=== PATIENT | male | born 1950 | race Caucasian/White ===

== ENCOUNTER 2018-04-03 07:14 | Day surgery (SDC) | payer MEDICARE, BC ==
[2018-04-03] VITALS (28 sets, daily range): BP systolic 110–154; BP diastolic 73–104
[~2018-04-03] VITALS: Ht 170.2 cm; Wt 82.1 kg
[2018-04-03] MEDS ORDERED: BUDE10.2 INH (07:42)
[2018-04-03] MEDS ORDERED: CARV-50 PO (07:42)
[2018-04-03] MEDS ORDERED: RIVA20TA PO (07:42)
[2018-04-03] MEDS ORDERED: HYDR12.5 PO (07:42)
[2018-04-03] MEDS ORDERED: MIDAZolam 5mg/ml 2ml vial IV ONE (07:45)
[2018-04-03] MEDS ORDERED: fentaNYL/PF 50MCG/1 ML 2ML syringe IV ONE (07:45)
[2018-04-03] MEDS ORDERED: normal saline 1000ml 1,000 ML IV SCH (07:45)
[2018-04-03 08:41] LABS: BASOPHILS % (AUTO) 0.4 % (0-1); EOSINOPHILS # (AUTO) 0.1 X10'3 (0-0.9); EOSINOPHILS % (AUTO) 2.2 % (0-6); HEMOGLOBIN 15.7 g/dl (14.0-17.9); LYMPHOCYTES # (AUTO) 1.8 X10'3 (1.1-4.8); LYMPHOCYTES % (AUTO) 27.5 % (21-51); MEAN CORPUSCULAR HGB CONC 33.5 % (33.0-36.5); MEAN CORPUSCULAR VOLUME 92.6 FL (78-98); MEAN PLATELET VOLUME 8.1 FL (7.4-10.4); MONOCYTES # (AUTO) 0.7 X10'3 (0-0.9); MONOCYTES % (AUTO) 10.7 % (2-12); NEUTROPHILS # (AUTO) 3.9 X10'3 (1.8-7.7); NEUTROPHILS % (AUTO) 59.2 % (42-75); PLATELET COUNT 277 X10'3 (140-440); RED BLOOD COUNT 5.07 X10'6 (4.70-6.10); RED CELL DISTRIBUTION WIDTH 11.9 % (11.5-14.5); WHITE BLOOD COUNT 6.5 X10'3 (4.5-11.0)
[2018-04-03 09:10] LABS: ALBUMIN 3.9 G/DL (3.4-5.0); ANION GAP 11 (8-16); BLOOD UREA NITROGEN 14 MG/DL (7-18); BUN/CREATININE RATIO 15.9 (5.4-32.0); CALCIUM 8.8 MG/DL (8.5-10.1); CHLORIDE 98 MMOL/L (99-107); CREATININE 0.88 MG/DL (0.60-1.10); GLUCOSE 106 MG/DL (70-104); MAGNESIUM 2.2 MG/DL (1.5-2.4); POTASSIUM 3.8 MMOL/L (3.5-5.1); SODIUM 136 MMOL/L (135-145); eGFR 86 ML/MIN
[2018-04-03 09:21] LABS: INR 1.2 INR; PROTHROMBIN TIME 11.9 SECONDS (9.0-12.0)
[2018-04-03] MEDS ORDERED: flecainide 50mg tablet PO ONE (09:30)
[2018-04-03] MEDS ORDERED: AZIL80TA PO (09:38)
[2018-04-03] MEDS ORDERED: diphenhydrAMINE 25mg capsule PO ONE (10:30)
[2018-04-03] MEDS ORDERED: iohexol 350MG/ML 100ml bottle IV ONE (10:57)
[2018-04-03] MEDS ORDERED: iohexol 350 MG/ML 50ML vial IV ONE (10:57)
[2018-04-03] MEDS ORDERED: LIDOcaine 1% (10mg/ml)w/preservative injection 20ml MDV ONE (10:57)
[2018-04-03] MEDS ORDERED: midazolam 2 mg/2 ml injection ONE (12:48)
[2018-04-03] MEDS ORDERED: fentaNYL/PF 50MCG/1 ML 2ML syringe ONE (12:49)
== END 2018-04-03 14:45 | disposition home or self-care (01) ==
LOC: SSTAY O 07:14
PROVIDERS: ATTEND Internal Medicine Cardiovascular Disease
DX: I25.10 Atherosclerotic heart disease of native coronary artery without angina pectoris (principal); I48.3 Typical atrial flutter; I49.8 Other specified cardiac arrhythmias; I45.19 Other right bundle-branch block; I48.91 Unspecified atrial fibrillation; I10 Essential (primary) hypertension; J45.998 Other asthma; M19.90 Unspecified osteoarthritis, unspecified site; Z96.653 Presence of artificial knee joint, bilateral; Z87.891 Personal history of nicotine dependence; Z86.19 Personal history of other infectious and parasitic diseases; Z90.49 Acquired absence of other specified parts of digestive tract; Z72.89 Other problems related to lifestyle; Z79.899 Other long term (current) drug therapy; Z98.890 Other specified postprocedural states; Z80.1 Family history of malignant neoplasm of trachea, bronchus and lung
CPT/HCPCS: 36415; 80048; 83735; 85025; 85610; 92960; 93005; 93458; 99152; A6257; C1760; J1644; J2001; J2250; J3010; J7030; Q0163; Q9967; A4620; C1769; C1894

== ENCOUNTER 2024-10-31 06:38 | Day surgery (SDC) | payer MEDICARE, BC ==
--- NOTE | 2024-10-24 14:33 | ELECTROCARDIOGRAPH REPORT ---
[facility] Test Date: 2024-10-24 Test Time: 14:28:05 Pat Name: KATIE PRO Department: PSYCHIATRIC-PRE-OP Room: Gender: M Public Transportation Inspector: ARABELLA : 1950 Requested By: JACQUI OSORIO Order Number: [id number] Reading MD: Dr. KENTON Parnell Measurements Intervals [place] Rate: 65 P: 81 [place]: 193 QRS: 91 QRSD: 167 T: 47 QT: 444 QTc: 462 Interpretive Statements Sinus rhythm RBBB and LPFB Electronically Signed On 10-24-2024 19:17:[address] KENTON Parnell Please click the below link to view image of tracing.
[2024-10-24 14:45] LABS: MEAN PLATELET VOLUME 6.7 FL (7.4-10.4); PRE OP HEMATOCRIT 37.4 % (42.0-52.0); PRE OP HEMOGLOBIN 13.3 g/dL (14.0-17.9); PRE OP PLATELET COUNT 269 X10'3 (140-440); PRE OP WHITE BLOOD COUNT 7.1 10'3 (4.8-10.8); RED CELL DISTRIBUTION WIDTH 12.5 % (11.5-14.5)
[2024-10-24 15:01] LABS: CREATININE 0.85 MG/DL (0.60-1.10); PRE OP ALT 30 U/L (30-65); PRE OP ANION GAP 7 (8-16); PRE OP AST 23 U/L (10-37); PRE OP BILIRUB, TOTAL 0.7 MG/DL (0.0-1.0); PRE OP GLUCOSE 128 MG/DL (70-104); PRE OP POTASSIUM 4.5 MMOL/L (3.4-5.1); TOTAL CARBON DIOXIDE 28.1 MMOL/L (24-32); eGFR 88 ML/MIN
[2024-10-24 15:07] LABS: PRE OP SODIUM 130 MMOL/L (135-145)
[2024-10-31] VITALS (27 sets, daily range): BP systolic 103–148; BP diastolic 44–83; PULSE 54–75; RESP 10–16; TEMP 97.5–98.1; O2SAT 94–100
[~2024-10-31] VITALS: Ht 170.2 cm; Wt 76.8 kg
[2024-10-31] MEDS: DOCUMENT DATE & TIME OF BETA-BLOCKER PO ONE (05:30)
[2024-10-31] MEDS: ceFAZolin 2gm/dext,iso 50mL 50 ML IV ONE (05:30)
[~2024-10-31 06:38] MED LIST: AMLO2.5T5 PO; ASPI81TA52 PO; DONE-46 PO; FLUT16SP2 BOTHNARES; LOSA50TA64 PO; METO-384 PO; PANT40TA54 PO; SPIR25TA5 PO
[2024-10-31] MEDS ORDERED: INDOCYANINE GREEN 25 MG/10 ML VIAL IV ONE (06:45)
[2024-10-31] MEDS ORDERED: BUPIVAcaine 0.25% w/Epi /PF 30ml vial ONE (06:45)
[2024-10-31] MEDS ORDERED: BUPIVACAINE liposomal/PF 13.3 MG/ML 10mL vial IM ONE (06:46)
[2024-10-31] MEDS: ringers solution, lacted 1,000 ML IV SCH ×2 (07:10→14:02)
[2024-10-31 07:30] LABS: ISTAT ANION GAP 12 (8-12); ISTAT BUN 12 mg/dL (7-18); ISTAT CL 96 mmol/L (99-107); ISTAT CREATININE 0.7 mg/dL (0.8-1.3); ISTAT GLUCOSE 94 mg/dL (70-104); ISTAT HGB 13.6 g/dl (14.0-17.9); ISTAT Hct 40 %PCV (42-52); ISTAT IONIZED CALCIUM 1.20 mmol/L (1.03-1.32); ISTAT K 4.4 mmol/L (3.5-5.1); ISTAT NA 132 mmol/L (135-145); ISTAT TOTAL CO2 24 mmol/L (24-32); ISTAT eGFR > 90 ML/MIN; POC BUN/CREATININE RATIO 17.1 (5.4-32.0)
[2024-10-31] MEDS ORDERED: propofol inj 20 ML IV ONE (08:02)
[2024-10-31] MEDS ORDERED: fentaNYL /PF 50mcg/ml 5ml ampule ONE (08:02)
[2024-10-31] MEDS ORDERED: midazolam 1 mg/ML 2ml injection ONE (08:02)
[2024-10-31] MEDS ORDERED: labetalol 20mg/4ml (5mg/ml) syringe IV PRN (08:55)
[2024-10-31] MEDS ORDERED: hydrALAZINE 20mg/ml inj. IV PRN (08:55)
[2024-10-31] MEDS ORDERED: morphine 4 MG/ML inj SYRINge IV PRN (08:55)
[2024-10-31] MEDS ORDERED: ondansetron/PF 4mg/2ml inj IV PRN ×2 (08:55→11:00)
[2024-10-31] MEDS ORDERED: acetaminophen 1,000mg/100ml IV 100 ML IV PRN (08:55)
[2024-10-31] MEDS ORDERED: HYDROmorphone/PF 0.2 MG/ML SYRINGE IV PRN ×2 (08:55)
[2024-10-31] MEDS: BUPIVAcaine 0.25% w/Epi /PF 30ml vial IJ ONE (08:56)
[2024-10-31] MEDS ORDERED: dexamethasone sod phosphate 4mg/ml inj. ONE (10:15)
[2024-10-31] MEDS ORDERED: ePHEDrine 50MG/ML INJ. ONE (10:15)
[2024-10-31] MEDS ORDERED: rocuronium 10mg/ml inj IV ONE ×2 (10:15)
[2024-10-31] MEDS ORDERED: ondansetron/PF 4mg/2ml inj ONE (10:16)
[2024-10-31] MEDS ORDERED: glycopyrrolate 0.2mg/ml inj ONE (10:29)
[2024-10-31] MEDS ORDERED: magnesium hydroxide 30ml (MOM) UD suspension PO PRN (11:00)
[2024-10-31] MEDS ORDERED: fluticasone nasal spray 16GM bottle NS PRN (11:00)
[2024-10-31] MEDS ORDERED: HYDROcodone/acetaminophen 5mg/325mg tablet PO PRN (11:00)
[2024-10-31] MEDS ORDERED: mag hydrox/Alum hydrox/simeth 30ml oral suspension PO PRN (11:00)
--- NOTE | 2024-10-31 11:16 | OPERATIVE REPORT ---
Operative Report Providers to ~ Date of Procedure: Oct 31, 2024 Pre-Operative Diagnosis: Prostate cancer Post-Operative Diagnosis SAME as PRE-Op Procedure Performed Robotic assisted radical prostatectomy Surgeon: MD Vincent Paramedic Instructor MD Gely Anesthesiologist: River Luna Type of Anesthesia: General Findings: Prostate removed SpaceOAR seen in the posterior plane Complications None Prosthetics\Implants used: None Estimated Blood Loss: Less than 50 cc Specimen Removed: Prostate Description of Procedure: Patient was brought to the operating room, given a general anesthetic, and placed in the supine position. He was prepped and draped in the normal sterile fashion. A timeout was performed. A felipe catheter was placed. An incision was made above the umbilicus. Verass needle was used the insuflate the abdomen. Then an 8 angolan robotic port was placed. We then placed 3 more robotic ports lateral to the median port. On the right a 12 angolan assistant at surgery port was placed under direct visualization. The patient was put into steep trendelenburg and the robot was docked. With the robot docked I used sharp dissection to drop the sigmoid colon. Once the sigmoid colon was dropped I made an incision in the peritoneum posteriorly and dissected to the seminal vesicles and vas deferns bilaterally. Once I was there I was able to dissect the posterior plan. Vas deferns were dissected bilaterally. I next turned my attention to the bladder. I dropped the bladder and approached the prostate from above opening the endopelvic fascia bilaterally with sharp dissection. Once this was completed and all pelvic floor muscles were brushed off the prostate I next turned to taking the bladder neck. Electrocautery was used to dissect the bladder neck until the catheter was reached, at which point the catheter was pulled up and the posterior bladder neck was dissected. Seminal vesicles and vas deferns bilaterally were both pulled up at this point. I next continued fully dissecting the posterior. The pedicles were taken at this point and the nerves were spared. I then used sharp dissection to take the dorsal venous complex, using a 3-0 v-lock suture to close the sinuses. The rest of the urethra was then taken with sharp dissection. The prostate was now free and moved out of the way, and double armed 3-0 v-loc suture was used to approximate the bladder neck to the urethra. I did this circumstantially until it was complete. This was tested with a new felipe catheter and was water tight. The prostate was placed in a specimen bag and the robot was undocked. The incision over the umbilicus was increased to allow the prostate to be removed, at which point it was removed. 2-0 vicryl suture was used to close the fascia, local anesthetic was injected into each wound, and 4-0 monocryl suture was used to close the skin with dermabond glue on the skin level. Counts repoted as correct: Yes JACQUI OSORIO MD Oct 31, 2024 11:16
[2024-10-31] MEDS: docusate sod 100mg capsule PO SCH (20:12)
[2024-10-31] MEDS: heparin, porcine 5000 units/ml vial SQ SCH (20:13)
[2024-10-31] MEDS: donepezil 5mg tablet PO SCH (20:13)
[2024-10-31] MEDS: HYDROmorphone inj. 0.5 MG/0.5 ML DISP.SYRIN IV PRN (21:24)
[2024-11-01 04:57] LABS: MEAN PLATELET VOLUME 7.1 FL (7.4-10.4); RED CELL DISTRIBUTION WIDTH 12.7 % (11.5-14.5)
[2024-11-01 05:09] LABS: CREATININE 0.82 MG/DL (0.60-1.10); TOTAL CARBON DIOXIDE 28.4 MMOL/L (24-32); eCRCL 74 ML/MIN; eGFR > 90 ML/MIN
[2024-11-01 06:30] VITALS: BP 136/58; PULSE 85; RESP 18; TEMP 98.6; O2SAT 95
--- NOTE | 2024-11-01 07:59 | DISCHARGE SUMMARY ---
Discharge Summary Providers to CC ~ Discharge Summary Assessment Prostate cancer now s/p treatment. Admission Diagnosis: Prostate cancer Hospital Course DATE OF ADMISSION: 10/31/24 DATE OF DISCHARGE: 11/01/24 Discharge Diagnosis\Comment: Prostate cancer Operations\Procedures: 10/31/24: Robotic assisted laparoscopic radical prostatectomy Consultants: None Complications: None Condition on DC: Stable Discharge Summary: Patient is doing very well after surgery. Recovering as expected. Mccarthy catheter in place draining clear urine. Tolerating a diet. General: Awake and Alert, no acute distress. HEENT: Conjunctiva pink, Sclera clear, Mucus Membranes moist. Neck: Supple without masses and tenderness. Resp: Unlabored. Heart: Regular Rate and rhythm Abdomen: Soft and non tender no organomegaly, incisions clean, dry, and intact Extremities: No cyanosis,clubbing or edema. Skin: Warm and Dry. *Problems/Diagnosis: (1) Prostate CA Status: Chronic Assessment & Plan: Doing well after surgery. Patient is ready for discharge home with catheter in place. Total Time Spent on D/C: Up to 30 Minutes JACQUI OSORIO MD Nov 01, 2024 07:59
[2024-11-01] MEDS: metoprolol succinate 25mg (24-HOUR) SR. Tablet PO SCH (08:07)
[2024-11-01 10:00] VITALS: BP 111/64; PULSE 70; RESP 18; TEMP 98; O2SAT 100
[2024-11-01 10:09] VITALS: BP_SYST 136; PULSE 85
--- NOTE | 2024-11-06 19:10 | PATHOLOGY REPORT ---
[facility] [address] [place] [address] SURGICAL PATHOLOGY REPORT CaseNumber: [id number] Surgeon:Hank Kaur M.D. CLINICAL INFORMATION CLINICAL INFORMATION: Prostate cancer. The patient was treated for six months with hormone therapy, e nding on May 02, 2024. DIAGNOSIS DIAGNOSIS: PROSTATE; ROBOTIC-ASSISTED LAPAROSCOPIC PROSTATE - ACINAR ADENOCARCINOMA OF THE PROSTATE, CONVENTIONAL TYPE (JESSIKA SCORE 4+ 3 = 7, GRADE GROUP 3), 8% OF PARENCHYMA. - INTRADUCTAL CARCINOMA PRESENT. - PERINEURAL INVASION PRESENT. - SEMINAL VESSELS UNINVOLVED. - ALL SURGICAL MARGINS NEGATIVE FOR INVASIVE CARCINOMA MICROSCOPIC DESCRIPTION MICROSCOPIC DESCRIPTION: Twenty six H&E slides are reviewed. Sections from the prostate show multiple discontinuous foci of acinar adenocarcinoma, conventional (usual) type, characterized by small, umkumiut ded glands infiltrating the prostatic parenchyma. Present is superimposed therapy effect. The carcinoma is assigned a Jessika score of 4 + 3 = 7 (Grade Group 3), with no higher-grade pattern s identified. Therapy effect present hinders grading. Estimated Jessika grade 4 (60%), Jessika grade 3 (40%). No extraprostatic extension, seminal vesicle invasion, or involvement of the urinary bladder neck is present. Perineural invasion is present. Foci of intraductal carcinoma are present, showing markedly enlarged glands with preserved basal hillary l layers, luminal cribriform growth, and nuclear atypia. These are not incorporated into the Jessika grade. The presence of intraductal carcinoma was verified utilizing Ipox stain PIN 4. The controls ar e appropriately positive and negative. The fingerprint was of an insitu carcinoma. The tumor involves approximately 8-10% of the prostatic tissue examined. All surgical margins are fr ee of invasive carcinoma. The surrounding benign prostatic tissue shows areas of chronic inflammation , with scattered lymphocytic infiltrates. No lymph nodes were submitted for examination. GROSS DESCRIPTION GROSS DESCRIPTION: Received in a container of formalin labeled with the patient's name, number, and " prostate" is a 69 gram prostatectomy specimen with attached seminal vesicles and vasa deferentia whic h measures 6.5 x 5.5 x 4 cm. The right half of the prostate is inked blue, the left half is inked saman ck, and the specimen is sectioned to reveal diffuse nodularity. A1) Apical prostatic urethra marginA2) Base prostatic urethra marginA3-A7) Right anterior prostate submitted apex to baseA8-A12) Left anterior prostate submitted apex to b [id number]) Right posterior prostate submitted apex to [id number]) Left posterior prostate submitt ed apex to baseA23) Right prostate/seminal [id number]) Left prostate/seminal vesicl eA25) Right vas [id number]) Left vas deferens The time at which the specimen was removed was 1024. The time at which the specimen was placed in fo rmalin was 1032. (meb) SYNOPTIC REPORT SYNOPTIC TEXT: Prostate - Radical Prostatectomy Specimen Procedure: Radical prostatectomy Prostate Size Prostate Weight (Grams): 69 g Prostate Size in Centimeters (cm): 6.5 x 5.5 x 4 Centimeters (cm) Tumor Histologic Type: Acinar adenocarcinoma, conventional (usual) Histologic Type Comment: Acinar type demonstrating therapy effect. Precise grading hindered. Histologic Grade Grade: Grade group 3 (Lynn Score 4 + 3 = 7) Percentage of Pattern 4: Less than 61% Intraductal Carcinoma (IDC): Present IDC Incorporated into Grade: No Cribriform Glands: Not identified Treatment Effect: Hormonal therapy effect present Tumor Quantitation Estimated Percentage of Prostate Involved by Tumor: 6 - 10% Location of Dominant Nodule: Right anterior Extraprostatic Extension (EPE): Not identified Urinary Bladder Neck Invasion: Not identified Seminal Vesicle Invasion: Not identified Lymphatic and / or Vascular Invasion: Not identified Perineural Invasion: Present Margins Margin Status: All margins negative for invasive carcinoma Regional Lymph Nodes Regional Lymph Node Status: Not applicable (no regional lymph nodes submitted or found) pTNM Classification (AJCC 8th Edition) Modified Classification: y pT Category: pT2 pN Category: pN not assigned (no nodes submitted or found) Special Studies Ancillary Studies: Not performed Best Tumor Blocks for Future Studies Tumor Block(s): A3, A10, A20 Normal Block(s): A11-16 Electronically signed by: Nhan Richards M.D. 11/06/2024 6:32:00 PM
== END 2024-11-01 10:19 | disposition home or self-care (01) ==
LOC: PAS 06:38 → SUR 3N 13:52 → PAS 11-01 10:19
PROVIDERS: ATTEND Urology
DX: C61 Malignant neoplasm of prostate (principal); I45.2 Bifascicular block; I10 Essential (primary) hypertension; I48.91 Unspecified atrial fibrillation; K21.9 Gastro-esophageal reflux disease without esophagitis; G47.30 Sleep apnea, unspecified; I25.2 Old myocardial infarction; M19.90 Unspecified osteoarthritis, unspecified site; Z87.891 Personal history of nicotine dependence; Z79.1 Long term (current) use of non-steroidal anti-inflammatories (NSAID); Z79.82 Long term (current) use of aspirin; Z79.899 Other long term (current) drug therapy; Z90.49 Acquired absence of other specified parts of digestive tract; Z96.653 Presence of artificial knee joint, bilateral; Z98.890 Other specified postprocedural states
CPT/HCPCS: 36415; 55866; 80047; 80048; 80053; 85025; 86885; 86900; 86901; 87081; 88309; 88344; 93005; A4215; A4338; A4357; A4618; A5200; J0665; J0666; J1100; J1171; J1644; J2250; J2405; J2704; J2710; J3010; J3490; J7030; J7120; Z7506; Z7508; Z7512; Z7610; G0378